=== PATIENT | male | born 1995 ===

== ENCOUNTER 2020-01-30 11:06 | Emergency (ER) | payer MEDICAID ==
[~2020-01-30] VITALS: Ht 182.9 cm; Wt 79.4 kg
[2020-01-30 11:18] VITALS: BP 121/66
--- NOTE | 2020-01-30 11:36 | NUR ---
24 YEAR OLD MALE COMPLAINS OF LEFT AND RIGHT EYE PAIN. BOTH EYES VISIBLY PINK/REDDENED, EYELIDS SWOLLEN, AND SOME DISCHARGE IN RIGHT EYE. PT STATES THAT NO TRAUMA, BUT 1.5 WEEKS AGO FELT LIKE THERE WAS SAND IN EYE. PT STATES ANTIBIOTIC EYE DROPS HAVE NOT HELPED FROM [place]. PT STATES RIGHT EYE SIGHT IS BLURRY, AND LEFT EYE IS STARTING TO GET BLURRY. PT AOX4, BREATHING EVEN AND UNLABORED, SKIN WARM AND DRY. BED IN LOWEST POSITION, LOCKED, BED RAIL UPX1. PMH - DENIES ALLERGIES - NKA
--- NOTE | 2020-01-30 11:46 | NUR ---
VISUAL ACUITY: RIGHT EYE 20/50, LEFT EYE 20/20, BOTH EYES 20/30
[2020-01-30] MEDS ORDERED: ERYTHROMYCIN 0.5% OPTH OINT 1 GM TUBE OP ONE (12:20)
[2020-01-30] MEDS ORDERED: DOXYCYCLINE 100 MG CAP PO STA ×2 (12:22→13:44)
[2020-01-30] MEDS ORDERED: NEOMYCIN/POLYMYXIN/DEXAMETH OP 5 ML BTL OP STA (12:22)
[2020-01-30] MEDS ORDERED: cefTRIAXone 1,000 MG in LIDOCAINE MPF 1% 2.1 ML IM ONE ×2 (12:25→13:45)
[2020-01-30] MEDS ORDERED: MOXIFLOXACIN 0.5% OP 3 ML BTL OP SCH (13:00)
--- NOTE | 2020-01-30 13:00 | NUR ---
PT ALERT AND AWAKE, BREATHING EVEN AND UNLABORED. STILL WAITING FOR MEDS FROM PHARMACY
[2020-01-30] MEDS ORDERED: cefTRIAXone 1,000 MG VIAL ONE (13:47)
[2020-01-30] MEDS ORDERED: LIDOCAINE MPF 1% 5 ML ONE (13:47)
--- NOTE | 2020-01-30 14:10 | NUR ---
Patient discharged with v/s stable. Written and verbal after care instructions given and explained. Patient alert, oriented and verbalized understanding of instructions. Ambulatory with steady gait. All questions addressed prior to discharge. ID band removed. Patient advised to follow up with PMD. Rx of vigamox, maxitrol, and doxycycline given. Patient educated on indication of medication including possible reaction and side effects. Opportunity to ask questions provided and answered.
[2020-01-30 14:52] VITALS: BP 121/66
== END 2020-01-30 14:10 | disposition home or self-care (01) ==
LOC: MED 11:06
DX: H10.9 Unspecified conjunctivitis (principal); B96.89 Other specified bacterial agents as the cause of diseases classified elsewhere
CPT/HCPCS: 87070; 96372; 99283; J0696; J2001